=== PATIENT | male | born 1965 | race Caucasian/White ===

== ENCOUNTER → 2016-10-25 | Outpatient (CLI) | payer BC, MEDICARE, OTHER | END | disposition home or self-care (01) | LOC: RT 09:48 | PROVIDERS: ATTEND Internal Medicine Pulmonary Disease | DX: R06.83 Snoring (principal) | CPT/HCPCS: G0399 ==

== ENCOUNTER → 2018-01-25 | Day surgery (SDC) | payer BC ==
[~2018-01-25] MED LIST: ASPI81TA50 PO; CETI10TA16 PO; HYDROmorphone 2 MG/ML VIAL IV PRN; IV RINGERS,LACTATED 1000ML 1,000 ML IV SCH; LIDOCAINE 1% PF 2 ML VIAL. ID PRN; LIDOCAINE 2% PF 2ML VIAL. ONE; MORPHINE SULFATE 2 MG/ML VIAL. IV PRN; NAPR220T70 PO; ONDANSETRON PF 4 MG/2 ML VIAL. IV PRN; PROCHLORPERAZINE 10 MG/2 ML VIAL. IV PRN; PROPOFOL 40 ML IV ONE; RANI150C PO; TELM80TA PO; fentaNYL PF VIAL 100 MCG/2 ML VIAL IV PRN
[2018-01-25 08:25] VITALS: BP 142/91
--- NOTE | 2018-01-25 08:32 | HP ---
ADMIT DATE: 01/25/2018 REFERRING PHYSICIAN: Dr. Bryanna Bautista. REASON: Family history of colon cancer and heartburn. HISTORY OF PRESENT ILLNESS: A 52-year-old male with past medical history significant for reflux, osteoarthrosis, seen for a screening colon exam. Bowel habits have been regular without diarrhea or constipation. There have been no melena and/or hematochezia. Family history is positive for colon cancer with his father. Prior colonoscopy a decade ago did reveal lipoma, in addition he has had reflux, but no dysphagia, odynophagia. He has taken mlrv-eby-sjetxld ranitidine with twice daily with minimal improvement and is here for further evaluation. PAST MEDICAL HISTORY: Status post appendectomy, rectal lipoma, GERD, osteoarthritis. ALLERGIES: None. MEDICATIONS: Include aspirin, cetirizine, Naprosyn, ranitidine and Micardis for blood pressure. FAMILY AND SOCIAL HISTORY: Colon cancer with his father. He is a social drinker, nonsmoker. REVIEW OF SYSTEMS: As per records. PHYSICAL EXAMINATION: GENERAL: Reveals a well-nourished, well-developed male who is alert, cooperative and in no acute distress. VITAL SIGNS: Temperature 98.3, pulse 68, respirations 18. HEENT: Reveals normocephalic, atraumatic head. Pupils and extraocular muscles are not tested. Sclerae anicteric. NECK: Supple. LUNGS: Clear. CARDIOVASCULAR: Reveals S1, S2 without S3, S4 or appreciable murmur. ABDOMEN: Reveals soft abdomen, normal bowel sounds without appreciable hepatosplenomegaly. EXTREMITIES: Reveals no cyanosis, clubbing or edema. IMPRESSION AND PLAN: 1. Heartburn, etiology to be determined. Gastroesophageal reflux disease, Mcintyre's, gastroparesis, achalasia, malignancy in the differential. Recommend upper endoscopy. 2. Colorectal screening with family history of colon cancer. Surveillance exam is warranted at this time. JOHN BANERJEE MD DR: MARLO/nts JOB#: [id number] / [id number]
--- NOTE | 2018-01-29 10:10 | PATHOLOGY ---
[facility] Accession Number: [id number] . 01 Material submitted: . DISTAL ESOPHAGUS BX . 01 Clinical history: . Pre-OP DX: Reflux/family HX colon cancer Post-OP DX: Rule out Mcintyre's . 02 Diagnosis: Esophageal biopsies, distal esophagus: - Segments of hyperplastic squamous esophageal mucosa and gastric mucosa showing chronic inflammation, consistent with reflux esophagitis. . (JPM:production estimator; 01/28/2018) MBR/01/28/2018 . 02 Comment: Sections of the distal esophageal biopsy reveal several segments of tangentially oriented hyperplastic squamous esophageal mucosa, and a few segments of gastric mucosa showing mild to moderate/marked chronic inflammation. The findings are consistent with reflux esophagitis. There is no evidence of Mcintyre's change, dysplasia, or malignancy. . (JPM:production estimator; 01/28/2018) . 02 Electronically signed: . Dustin Rogers MD, Pathologist NPI- [id number] . 01 Gross description: . Received in formalin labeled "Lowe, Guido, distal esophagus BX," are 5 segments of guidry soft tissue measuring 1.1 x 0.6 x 0.2 cm in aggregate dimensions and ranging from 0.1 to 0.5 cm in maximum dimension. The specimen is submitted entirely in cassette A1. (TSD; 01/25/2018) TOB/TOB . 02 Pathologist provided ICD-10: K21.0 . 02 CPT . 595784 Specimen Comment: A courtesy copy of this report has been sent to Specimen Comment: [phone], . Specimen Comment: Report sent to / DR LOWERY Performed at: [address], [place], [place] [id number] MD Levy Navas MD Phone: [phone] Performed at: [address] [id number] MD Dustin Rogers MD Phone: [phone]
== END | disposition home or self-care (01) ==
LOC: ENDOS 06:27
PROVIDERS: ATTEND Internal Medicine Gastroenterology
DX: Z12.11 Encounter for screening for malignant neoplasm of colon (principal); K64.0 First degree hemorrhoids; K21.0 Gastro-esophageal reflux disease with esophagitis; Z80.0 Family history of malignant neoplasm of digestive organs; M19.90 Unspecified osteoarthritis, unspecified site; Z90.49 Acquired absence of other specified parts of digestive tract; Z98.890 Other specified postprocedural states; Z79.82 Long term (current) use of aspirin; Z79.899 Other long term (current) drug therapy; Z72.89 Other problems related to lifestyle
CPT/HCPCS: 43239; 45378; 88305; J2001; J2704

== ENCOUNTER → 2018-09-12 | Outpatient (CLI) | payer BC ==
[2018-01-25 08:25] VITALS: BP 142/91
[~2018-09-12] MED LIST changes: -HYDROmorphone 2 MG/ML VIAL IV PRN; -IV RINGERS,LACTATED 1000ML 1,000 ML IV SCH; -LIDOCAINE 1% PF 2 ML VIAL. ID PRN; -LIDOCAINE 2% PF 2ML VIAL. ONE; -MORPHINE SULFATE 2 MG/ML VIAL. IV PRN; -ONDANSETRON PF 4 MG/2 ML VIAL. IV PRN; -PROCHLORPERAZINE 10 MG/2 ML VIAL. IV PRN; -PROPOFOL 40 ML IV ONE; -fentaNYL PF VIAL 100 MCG/2 ML VIAL IV PRN
--- NOTE | 2018-09-12 12:29 | RAD ---
MR#: [id number] Date of Study: 09/12/2018 Ordering Physician: RUSH ASHTON, Referring Physician: BRYCE MERCADO Tech: RICK Gan APPROVED REPORT Test Type: Exercise Stress Nurse/Tech: Dana Lopez RN Test Indications: HTN, High CT calcium score Cardiac History: asthma Medications: See Electronic Medical Record Medical History: See Electronic Medical Record Resting ECG: SR Resting Heart Rate: 69 bpm Resting Blood Pressure: 136/88mmHg Pretest Chest Pain: None Nurse/Tech Notes lungs CTA, S1S2 Consent: The procedure was explained to the patient in lay terms. Informed consent was witnessed. Sage eout was entered into [employer]. History and Stress Test performed by Dana Lopez RN Stress Symptoms no chest pain or symptoms. POST EXERCISE Reason for Termination: Reached target heart rate Target HR: 141 Max HR: 170 bpm 120% of Maximum Predicted HR: 141 bpm Exercise duration: 16:38 min:sec, Stage Exercise capacity: 13.4METs Max Blood Pressure: 172/85mmHg Blood Pressure response to exercise: Normal blood pressure response during stress. Heart Rate response to exercise: normal response Chest Pain: No. Arrhythmia: No. ST Change: No. INTERPRETATION Stress EKG Conclusion: Mildly abnormal EKG with 1-[address] depression. Imaging Protocol IMAGE PROTOCOL: Rest Tc-99m/stress Tc-99m 1 day Rest: Stress: Viability: Radiopharm.Tc99m OrfxlamuuVh73g Sestamibi Dose10.9mCi 33mCi Duration 16min. 13min. Img Date 09/12/2018 09/12/2018 Inj-Img [id number]. 75min. Rest Admin Site:IV - Right AntecubitalAdministrator:RICK Gan Stress Admin Site: IV - Right AntecubitalAdministrator: RT Paradise (R)(N) STRESS DATA End Diast. Vol.116.0mlLVEDV index BSA51.0ml End Syst. Vol.29.0mlLVESV index BSA13.0ml Myocardial Eymu739.0gEject. Dfibqayo00.0% Stress Scores Regional WT0.00Summed WT0.00 Regional WM0.00Summed WM0.00 The rest and stress images show normal perfusion, normal contraction and thickening. LV Perf. Quant 17 Seg. SSS0.00 17 Seg. SRS0.00 17 Seg. SDS0.00 Stress Defect Extent (% LAD)0.00Rest Defect Extent (% LAD)0.00Rev. Defect Extent (% LAD)0.00 Stress Defect Extent (% LCX) 0.00Rest Defect Extent (% LCX)0.00Rev. Defect Extent (% LCX)0.00 Stress Defect Extent (% RCA)0.00Rest Defect Extent (% RCA)0.00Rev. Defect Extent (% RCA)0.00 Stress Defect Extent (% DAMIAN)0.00Rest Defect Extent (% DAMIAN)0.00Rev. Defect Extent (% DAMIAN)0.00 Other Information Quality:Good Risk Assessment: Low Risk Conclusion 1. Mildly abnormal EKG with 1-[address] segment depression. 2. Good exercise capacity 3. Normal perfusion at stress/rest. 4. Normal EF at > 75% 5. Low risk study Signed by : Rush Ashton, Electronically Approved : 09/12/2018 12:28:48
== END | disposition home or self-care (01) ==
LOC: NM 08:20
PROVIDERS: ATTEND Internal Medicine Cardiovascular Disease
DX: R94.31 Abnormal electrocardiogram [ECG] [EKG] (principal); I25.10 Atherosclerotic heart disease of native coronary artery without angina pectoris; I10 Essential (primary) hypertension; J45.909 Unspecified asthma, uncomplicated
CPT/HCPCS: 78452; 93017; 96376; A9500

== ENCOUNTER → 2021-04-11 | Outpatient (CLI) | payer BC ==
[~2021-04-11] MED LIST changes: +NON FORMULARY ITEM 1 EA in IV NORMAL SALINE 50ML 50 ML IV ONE
[2021-04-11 16:41] VITALS: BP 145/85
== END | disposition home or self-care (01) ==
LOC: OPS 15:17
PROVIDERS: ATTEND Internal Medicine Pulmonary Disease
DX: U07.1 COVID-19 (principal)
CPT/HCPCS: M0247; Q0247; 96365